=== PATIENT | female | born 1955 | race Asian ===

== ENCOUNTER 2018-04-29 08:03 | Day surgery (SDC) | payer OTHER ==
[2018-04-29] MEDS ORDERED: LIDOCAINE 4% SOLUTION 50 ML BTL (09:30)
[2018-04-29] MEDS ORDERED: MIDAZOLAM 1 MG/ML 2 ML INJ ×2 (11:01)
[2018-04-29] MEDS ORDERED: FENTAnyl 50 MCG/ML VIAL (11:02)
== END 2018-04-29 12:19 | disposition home or self-care (01) ==
LOC: GIL 08:03
DX: K92.1 Melena (principal); K29.50 Unspecified chronic gastritis without bleeding; D12.6 Benign neoplasm of colon, unspecified
CPT/HCPCS: 43239